=== PATIENT | female | born 2000 | race Caucasian/White ===

== ENCOUNTER 2020-09-02 22:54 | Emergency (ER) | payer OTHER ==
[2020-09-03] MEDS ORDERED: NAPROSYN500 MG PO (00:06)
== END 2020-09-03 00:45 | disposition home or self-care (01) ==
LOC: ER1 22:54
DX: S70.02XA Contusion of left hip, initial encounter (principal); S20.212A Contusion of left front wall of thorax, initial encounter; I10 Essential (primary) hypertension; F41.9 Anxiety disorder, unspecified; Z79.899 Other long term (current) drug therapy; V47.5XXA Car driver injured in collision with fixed or stationary object in traffic accident, initial encounter; Y92.410 Unspecified street and highway as the place of occurrence of the external cause
CPT/HCPCS: 71111; 73502; 84703; 99284

== ENCOUNTER → 2020-11-23 | Outpatient (CLI) | payer OTHER ==
[~2020-11-23] MED LIST: NAPROSYN500 MG PO
== END ==
LOC: RAD 13:03
DX: R07.9 Chest pain, unspecified (principal)
CPT/HCPCS: 71046

== ENCOUNTER → 2021-01-01 | Outpatient (CLI) | payer OTHER | LOC: HEART 5 12-20 11:00 | DX: R07.9 Chest pain, unspecified (principal) ==

== ENCOUNTER 2021-10-24 08:15 | Inpatient (IN) | payer OTHER ==
[~2021-10-24] VITALS: Ht 160 cm; Wt 91.6 kg
[2021-10-24] MEDS ORDERED: TRANDATE 100 M100 MG PO (09:30)
[2021-10-24] MEDS ORDERED: PRETAB PO (09:31)
[2021-10-24 09:47] LABS: HEMOGLOBIN 11.6 gm/dl (12.3-15.3); RED BLOOD COUNT 3.64 M/UL (4.00-5.10); WHITE BLOOD COUNT 15.9 K/UL (4.5-11.0)
[2021-10-24] MEDS ORDERED: HEMOCYTE324 MG PO (13:48)
[2021-10-24] MEDS ORDERED: COLACE100 MG PO (13:48)
[2021-10-24] MEDS ORDERED: IBUPROFEN800 MG PO (13:48)
[2021-10-25 05:44] LABS: HEMOGLOBIN 10.4 gm/dl (12.3-15.3)
== END 2021-10-26 18:30 | disposition home or self-care (01) | DRG 807 ==
LOC: GENOP 08:15 → OB 09:38
PROVIDERS: ADMIT Obstetrics & Gynecology
PROC: 10E0XZZ Delivery of Products of Conception, External Approach (ICD-10-PCS; principal; 2021-10-24)
PROC: 4A1HXCZ Monitoring of Products of Conception, Cardiac Rate, External Approach (ICD-10-PCS; 2021-10-24)
DX: O10.92 Unspecified pre-existing hypertension complicating childbirth (principal); Z37.0 Single live birth; Z3A.35 35 weeks gestation of pregnancy; O69.1XX0 Labor and delivery complicated by cord around neck, with compression, not applicable or unspecified; Z20.822 Contact with and (suspected) exposure to COVID-19; Z80.0 Family history of malignant neoplasm of digestive organs; Z82.49 Family history of ischemic heart disease and other diseases of the circulatory system; Z83.49 Family history of other endocrine, nutritional and metabolic diseases
CPT/HCPCS: 36415; 82800; 85014; 85018; 85025; J0595; J2590; U0002